=== PATIENT | female | born 1980 | race Caucasian/White ===

== ENCOUNTER 2017-01-18 17:58 | Emergency (ER) | payer OTHER ==
[~2017-01-18] VITALS: Ht 165.1 cm; Wt 204.0 kg
[~2017-01-18 17:58] MED LIST: AMOXICILLIN500 M2 PO; AMOXICILLIN500 MG PO; BACTRIM DS1 TAB PO; CEPHALEXIN500 MG OR; DARVOCET N-100100 - OR; FERROUS SULF325 M2 PO; LORTAB 5 OR; MACRODANTIN100 MG PO; MOTRIN800 MG/TAB PO; MULTI VIT PO; NAPROSYN500 MG OR; NAPROSYN500 MG PO; OBTREX DHA PO; OXYCO/APAP1 TA5 PO; PRENATA4 OR; ROBITUSSIN AC10 ML PO; ULTRAM50 M1 PO; VANCOMYCIN HCL1.5GM IV; WAL-FEX D 1212 HOUR PO; [UNRECOGNIZED DRUG - OTHER] PO
[2017-01-18] MEDS ORDERED: AMOXICILLIN500 MG PO (18:32)
[2017-01-18] MEDS ORDERED: ULTRAM50 M1 PO (18:32)
[2017-01-18 18:40] VITALS: BP 159/74
== END 2017-01-18 18:40 | disposition home or self-care (01) | DRG 563 ==
LOC: ED 17:58
DX: S93.402A Sprain of unspecified ligament of left ankle, initial encounter (principal); S90.812A Abrasion, left foot, initial encounter; W10.9XXA Fall (on) (from) unspecified stairs and steps, initial encounter; Y92.009 Unspecified place in unspecified non-institutional (private) residence as the place of occurrence of the external cause

== ENCOUNTER 2017-07-16 14:24 | Emergency (ER) | payer OTHER ==
[~2017-07-16] VITALS: Ht 165.1 cm; Wt 192.8 kg
[2017-07-16] MEDS ORDERED: AMOXICILLIN500 M2 PO (16:19)
[2017-07-16 16:54] VITALS: BP 150/87
== END 2017-07-16 16:50 | disposition home or self-care (01) | DRG 153 ==
LOC: ED 14:24
DX: J02.0 Streptococcal pharyngitis (principal); F17.210 Nicotine dependence, cigarettes, uncomplicated; H92.02 Otalgia, left ear; J02.9 Acute pharyngitis, unspecified; R11.2 Nausea with vomiting, unspecified; R05 Cough; R03.0 Elevated blood-pressure reading, without diagnosis of hypertension

== ENCOUNTER 2017-12-17 08:42 | Emergency (ER) | payer OTHER ==
[~2017-12-17] VITALS: Ht 165.1 cm; Wt 184.2 kg
[2017-12-17] MEDS ORDERED: TORADOL PO (09:58)
[2017-12-17 10:26] VITALS: BP 158/106
== END 2017-12-17 10:40 | disposition home or self-care (01) ==
LOC: ED 08:42
DX: S83.91XA Sprain of unspecified site of right knee, initial encounter (principal); X50.1XXA Overexertion from prolonged static or awkward postures, initial encounter; Y93.01 Activity, walking, marching and hiking; Y92.009 Unspecified place in unspecified non-institutional (private) residence as the place of occurrence of the external cause

== ENCOUNTER 2018-07-13 17:15 | Emergency (ER) | payer OTHER ==
[~2018-07-13] VITALS: Ht 165.1 cm; Wt 186.0 kg
[~2018-07-13 17:15] MED LIST changes: +TORADOL PO
[2018-07-13 17:45] LABS: HEMATOCRIT 41.8 % (37.0-47.0); HEMOGLOBIN 13.1 g/dl (12.0-16.0); IMMATURE GRANULOCYTES 0.6 % (0.0-5.0); MEAN CORPUSCULAR HGB 25.4 pG CALC (26.0-32.0); MEAN CORPUSCULAR HGB CONC 31.3 g/L CALC (32.0-36.0); NEUT# 7.17 thou/uL (2.00-7.15); RED BLOOD COUNT 5.16 mill/uL (4.20-5.60); RED CELL DISTRI WIDTH 16.7 % (11.5-15.5)
[2018-07-13 17:55] LABS: ALKALINE PHOSPHATASE 96 u/l (38-126); AMYLASE 51 u/l (30-110); ANION GAP 12 (6-22 (CALC)); BILIRUBIN, TOTAL 0.4 mg/dL (0.0-1.4); BUN 15 mg/dL (7-17); BUN/CREATININE RATIO 15 (12-20 (CALC)); CARBON DIOXIDE 27 mmol/l (22-30); CHLORIDE 107 mmol/l (95-108); GFR > 60 ML/MIN (>=60 (CALC)); GFR FOR AFR.AMER. > 60 ML/MIN (>=60 (CALC)); SGOT/AST 15 u/l (14-36); SODIUM 141 mmol/l (137-146)
[2018-07-13 18:07] LABS: MYOGLOBIN 41 ng/mL (0 - 62)
[2018-07-13 18:39] LABS: URINE BILIRUBIN - DIPSTICK NEGATIVE (NEGATIVE); URINE BLOOD DIPSTICK TRACE-INTACT (NEGATIVE); URINE COLOR YELLOW; URINE GLUCOSE - DIPSTICK NEGATIVE (NEGATIVE); URINE KETONE NEGATIVE (NEGATIVE); URINE LEUK ESTERASE NEGATIVE (NEGATIVE); URINE NITRITE - DIPSTICK NEGATIVE (Negative); URINE PROTEIN - DIPSTICK NEGATIVE (NEG-TRACE); URINE SPECIFIC GRAVITY 1.025
[2018-07-13 18:43] LABS: BARBITURATES NEGATIVE (NEGATIVE); COCAINE NEGATIVE (NEGATIVE); METHADONE NEGATIVE (NEGATIVE); OXCYCODONE NEGATIVE (NEGATIVE); TETRAHYDROCANNABIONOL NEGATIVE (NEGATIVE); TRICYLIC ANTIDEPRESSANTS NEGATIVE (NEGATIVE)
[2018-07-13 21:00] VITALS: BP 153/72
== END 2018-07-13 21:21 | disposition home or self-care (01) ==
LOC: ED 17:15
PROVIDERS: Emergency Medicine
DX: R07.89 Other chest pain (principal); R94.31 Abnormal electrocardiogram [ECG] [EKG]; R50.9 Fever, unspecified

== ENCOUNTER 2018-08-10 19:48 | Emergency (ER) | payer OTHER ==
[~2018-08-10] VITALS: Ht 157.5 cm; Wt 184.1 kg
[2018-08-10 21:17] VITALS: BP 181/87
[2018-08-10] MEDS ORDERED: ORPHENADRINE100 MG PO (21:17)
[2018-08-10] MEDS ORDERED: IBUPROFEN600 MG PO (21:17)
== END 2018-08-10 21:26 | disposition home or self-care (01) ==
LOC: ED 19:48
DX: R07.89 Other chest pain (principal); F17.210 Nicotine dependence, cigarettes, uncomplicated; R07.81 Pleurodynia

== ENCOUNTER 2018-09-11 19:33 | Emergency (ER) | payer OTHER ==
[~2018-09-11] VITALS: Ht 157.5 cm; Wt 182.4 kg
[~2018-09-11 19:33] MED LIST changes: +IBUPROFEN600 MG PO; +ORPHENADRINE100 MG PO
[2018-09-11] MEDS ORDERED: ZOFRAN4 MG/TAB PO (20:37)
[2018-09-11] MEDS ORDERED: AMOXICILLIN875 MG PO (20:37)
[2018-09-11 21:00] VITALS: BP 124/67
== END 2018-09-11 21:00 | disposition home or self-care (01) ==
LOC: ED 19:33
DX: J02.0 Streptococcal pharyngitis (principal); H66.92 Otitis media, unspecified, left ear; F17.200 Nicotine dependence, unspecified, uncomplicated; R50.9 Fever, unspecified

== ENCOUNTER 2019-01-13 16:27 | Emergency (ER) | payer MEDICAID ==
[~2019-01-13] VITALS: Ht 157.5 cm; Wt 200.0 kg
[~2019-01-13 16:27] MED LIST changes: +AMOXICILLIN875 MG PO; +ZOFRAN4 MG/TAB PO
[2019-01-13 17:34] LABS: HEMATOCRIT 45.1 % (37.0-47.0); HEMOGLOBIN 13.9 g/dl (12.0-16.0); IMMATURE GRANULOCYTES 0.5 % (0.0-5.0); MEAN CELL VOLUME 83.1 fL CALC (80.0-100.0); MEAN CORPUSCULAR HGB 25.6 pG CALC (26.0-32.0); MEAN CORPUSCULAR HGB CONC 30.8 g/L CALC (32.0-36.0); NEUT# 13.69 thou/uL (2.00-7.15); RED BLOOD COUNT 5.43 mill/uL (4.20-5.60); RED CELL DISTRI WIDTH 16.8 % (11.5-15.5)
[2019-01-13 17:54] LABS: ALBUMIN 3.9 g/dL (3.2-5.0); ALKALINE PHOSPHATASE 75 u/l (38-126); AMYLASE 39 u/l (30-110); ANION GAP 16 (6-22 (CALC)); BILIRUBIN, TOTAL 0.5 mg/dL (0.0-1.4); BUN 15 mg/dL (7-17); BUN/CREATININE RATIO 14 (12-20 (CALC)); CARBON DIOXIDE 23 mmol/l (22-30); CHLORIDE 102 mmol/l (95-108); GFR > 60 ML/MIN (>=60 (CALC)); GFR FOR AFR.AMER. > 60 ML/MIN (>=60 (CALC)); LIPASE 26 u/l (23-300); POTASSIUM 4.2 mmol/l (3.5-5.1); SGOT/AST 23 u/l (14-36); SODIUM 137 mmol/l (137-146); TOTAL PROTEIN 7.4 g/dL (6.3-8.2)
[2019-01-13] MEDS ORDERED: CLEOCIN300 MG PO (19:38)
[2019-01-13] MEDS ORDERED: ONDANSETRON4 MG PO (19:38)
[2019-01-13 19:52] VITALS: BP 149/65
== END 2019-01-13 20:00 | disposition home or self-care (01) ==
LOC: ED 16:27
PROVIDERS: Emergency Medicine
DX: J02.0 Streptococcal pharyngitis (principal); R11.2 Nausea with vomiting, unspecified; F17.210 Nicotine dependence, cigarettes, uncomplicated

== ENCOUNTER 2019-03-14 | Emergency (ER) | payer MEDICAID ==
[~2019-03-14] MED LIST changes: +CLEOCIN300 MG PO; +ONDANSETRON4 MG PO
[2019-03-14] MEDS ORDERED: CEPHALEXIN500 M1 PO (08:58)
== END 2019-03-14 09:21 | disposition home or self-care (01) ==
DX: F17.200 Nicotine dependence, unspecified, uncomplicated (principal); N61.0 Mastitis without abscess

== ENCOUNTER 2019-06-07 | Emergency (ER) | payer MEDICAID ==
[~2019-06-07] MED LIST changes: +CEPHALEXIN500 M1 PO
[2019-06-07] MEDS ORDERED: FLEXERIL PO (17:25)
== END 2019-06-07 17:43 | disposition home or self-care (01) ==
DX: S20.211A Contusion of right front wall of thorax, initial encounter (principal); S40.021A Contusion of right upper arm, initial encounter; S00.83XA Contusion of other part of head, initial encounter; S80.12XA Contusion of left lower leg, initial encounter; F17.210 Nicotine dependence, cigarettes, uncomplicated; W06.XXXA Fall from bed, initial encounter; Y93.89 Activity, other specified; Y92.003 Bedroom of unspecified non-institutional (private) residence as the place of occurrence of the external cause

== ENCOUNTER 2019-07-01 21:20 | Emergency (ER) | payer MEDICAID ==
[~2019-07-01 21:20] MED LIST changes: +FLEXERIL PO
[2019-07-01 22:30] LABS: ALBUMIN 3.7 g/dL (3.2-5.0); ALKALINE PHOSPHATASE 88 u/l (38-126); ANION GAP 10 (6-22 (CALC)); BILIRUBIN, TOTAL 0.3 mg/dL (0.0-1.4); BUN 18 mg/dL (7-17); BUN/CREATININE RATIO 16 (12-20 (CALC)); CHLORIDE 103 mmol/l (95-108); CREATININE 1.1 mg/dL (0.5-1.0); GFR 56 ML/MIN (>=60 (CALC)); GFR FOR AFR.AMER. > 60 ML/MIN (>=60 (CALC)); POTASSIUM 3.8 mmol/l (3.5-5.1); SGOT/AST 17 u/l (14-36); SODIUM 137 mmol/l (137-146)
[2019-07-01 22:31] LABS: HEMATOCRIT 39.7 % (37.0-47.0); IMMATURE GRANULOCYTES 0.5 % (0.0-5.0); MEAN CORPUSCULAR HGB 24.5 pG CALC (26.0-32.0); MEAN CORPUSCULAR HGB CONC 30.2 g/dL CAL (32.0-36.0); NEUT# 7.87 thou/uL (2.00-7.15); RED BLOOD COUNT 4.9 mill/uL (4.20-5.60); RED CELL DISTRI WIDTH 17.3 % (11.5-15.5)
[2019-07-01 22:33] LABS: CARBON DIOXIDE 28 mmol/l (22-30)
[2019-07-01 23:00] LABS: URINE BILIRUBIN - DIPSTICK NEGATIVE (NEGATIVE); URINE BLOOD DIPSTICK LARGE (NEGATIVE); URINE COLOR YELLOW; URINE GLUCOSE - DIPSTICK NEGATIVE (NEGATIVE); URINE KETONE NEGATIVE (NEGATIVE); URINE LEUK ESTERASE NEGATIVE (NEGATIVE); URINE NITRITE - DIPSTICK NEGATIVE (Negative); URINE PROTEIN - DIPSTICK NEGATIVE (NEG-TRACE); URINE UROBILINOGEN - DIPSTICK 0.2 E.U./dL (0.2)
[2019-07-01 23:01] LABS: URINE RBC TNTC RBC/hpf (0-5); URINE SQUAMOUS EPITHELIAL CELL FEW EPI/hpf (0-FEW)
[2019-07-01] MEDS ORDERED: PROVERA10 MG PO (23:09)
[2019-07-01] MEDS ORDERED: NAPROXEN500 MG PO (23:09)
[2019-07-01 23:25] VITALS: BP 160/80
== END 2019-07-01 23:25 | disposition home or self-care (01) ==
LOC: ED 21:20
PROVIDERS: Family Medicine
DX: N93.8 Other specified abnormal uterine and vaginal bleeding (principal); E66.01 Morbid (severe) obesity due to excess calories; F17.210 Nicotine dependence, cigarettes, uncomplicated

== ENCOUNTER 2019-08-11 20:13 | Emergency (ER) | payer MEDICAID ==
[~2019-08-11] VITALS: Ht 157.5 cm; Wt 190.0 kg
[~2019-08-11 20:13] MED LIST changes: +NAPROXEN500 MG PO; +PROVERA10 MG PO
[2019-08-11] MEDS ORDERED: MOTRIN800 MG PO (20:37)
[2019-08-11] MEDS ORDERED: CLINDAMYCIN300 M1 PO (20:37)
[2019-08-11 21:10] VITALS: BP 148/82
== END 2019-08-11 21:11 | disposition home or self-care (01) ==
LOC: ED 20:13
DX: K04.7 Periapical abscess without sinus (principal); E66.9 Obesity, unspecified; F17.200 Nicotine dependence, unspecified, uncomplicated

== ENCOUNTER 2020-07-26 13:12 | Emergency (ER) | payer OTHER ==
[~2020-07-26] VITALS: Ht 157.5 cm; Wt 193.0 kg
[~2020-07-26 13:12] MED LIST changes: +CLINDAMYCIN300 M1 PO; +MOTRIN800 MG PO
[2020-07-26 14:15] LABS: BASO% 0 % (0-3); EOS% 2 % (0-8); HEMATOCRIT 41.3 % (37.0-47.0); HEMOGLOBIN 12.6 g/dl (12.0-16.0); IMMATURE GRANULOCYTES 0.3 % (0.0-5.0); LYMPH% 21 % (15-41); MEAN CORPUSCULAR HGB 24.1 pG CALC (26.0-32.0); MEAN CORPUSCULAR HGB CONC 30.5 g/dL CAL (32.0-36.0); MONO% 6 % (2-13); NEUT# 6.13 thou/uL (2.00-7.15); NEUT% 71 % (42-76); PLATELET COUNT 229 thou/uL (130-400); RED BLOOD COUNT 5.23 mill/uL (4.20-5.60); RED CELL DISTRI WIDTH 18.1 % (11.5-15.5)
[2020-07-26 14:30] LABS: ALBUMIN 3.7 g/dL (3.2-5.0); ALKALINE PHOSPHATASE 69 u/l (38-126); ANION GAP 9 (6-22 (CALC)); BUN 11 mg/dL (7-17); BUN/CREATININE RATIO 11 (12-20 (CALC)); CARBON DIOXIDE 28 mmol/l (22-30); CHLORIDE 103 mmol/l (95-108); GFR > 60 ML/MIN (>=60 (CALC)); GFR FOR AFR.AMER. > 60 ML/MIN (>=60 (CALC)); POTASSIUM 3.8 mmol/l (3.5-5.1); SGOT/AST 19 u/l (14-36); SODIUM 136 mmol/l (137-146); TOTAL PROTEIN 7.1 g/dL (6.3-8.2)
[2020-07-26 14:31] LABS: BILIRUBIN, TOTAL 0.5 mg/dL (0.0-1.4)
[2020-07-26 17:39] VITALS: BP 140/74
== END 2020-07-26 17:47 | disposition home or self-care (01) ==
LOC: ED 13:12
PROVIDERS: Family Medicine
DX: N93.9 Abnormal uterine and vaginal bleeding, unspecified (principal); N94.89 Other specified conditions associated with female genital organs and menstrual cycle; E66.9 Obesity, unspecified; F17.210 Nicotine dependence, cigarettes, uncomplicated; Z68.45 Body mass index [BMI] 70 or greater, adult

== ENCOUNTER 2021-03-28 13:49 | Emergency (ER) | payer OTHER ==
[~2021-03-28] VITALS: Ht 157.5 cm; Wt 190.9 kg
[2021-03-28 14:36] LABS: HEMATOCRIT 39.3 % (37.0-47.0); HEMOGLOBIN 11.4 g/dl (12.0-16.0); IMMATURE GRANULOCYTES 0.3 % (0.0-5.0); MEAN CELL VOLUME 77.8 fL CALC (80.0-100.0); MEAN CORPUSCULAR HGB 22.6 pG CALC (26.0-32.0); NEUT# 7.01 thou/uL (2.00-7.15); RED BLOOD COUNT 5.05 mill/uL (4.20-5.60); RED CELL DISTRI WIDTH 18.7 % (11.5-15.5)
[2021-03-28 14:55] LABS: ALBUMIN 3.6 g/dL (3.2-5.0); ALKALINE PHOSPHATASE 82 u/l (38-126); ANION GAP 11 (6-22 (CALC)); BILIRUBIN, TOTAL 0.3 mg/dL (0.0-1.4); BUN 11 mg/dL (7-17); BUN/CREATININE RATIO 9 (12-20 (CALC)); CARBON DIOXIDE 27 mmol/l (22-30); CHLORIDE 103 mmol/l (95-108); CREATININE 1.1 mg/dL (0.5-1.0); GFR 55 ML/MIN (>=60 (CALC)); GFR FOR AFR.AMER. > 60 ML/MIN (>=60 (CALC)); POTASSIUM 3.9 mmol/l (3.5-5.1); SGOT/AST 17 u/l (14-36); SODIUM 137 mmol/l (137-146); TOTAL PROTEIN 6.8 g/dL (6.3-8.2)
[2021-03-28] MEDS ORDERED: ZPAK PO (17:32)
[2021-03-28 17:53] VITALS: BP 148/78
== END 2021-03-28 18:12 | disposition home or self-care (01) ==
LOC: ED 13:49
PROVIDERS: Family Medicine
DX: J06.9 Acute upper respiratory infection, unspecified (principal); E66.9 Obesity, unspecified; F17.200 Nicotine dependence, unspecified, uncomplicated; Z20.822 Contact with and (suspected) exposure to COVID-19

== ENCOUNTER 2021-06-18 20:41 | Emergency (ER) | payer OTHER ==
[2021-06-18] VITALS (12 sets, daily range): BP systolic 121–173; BP diastolic 58–94
[~2021-06-18] VITALS: Ht 157.5 cm; Wt 186.0 kg
[~2021-06-18 20:41] MED LIST changes: +ZPAK PO
[2021-06-18 21:22] LABS: HEMATOCRIT 37.2 % (37.0-47.0); HEMOGLOBIN 10.6 g/dl (12.0-16.0); IMMATURE GRANULOCYTES 0.6 % (0.0-5.0); MEAN CELL VOLUME 72.9 fL CALC (80.0-100.0); MEAN CORPUSCULAR HGB 20.8 pG CALC (26.0-32.0); MEAN CORPUSCULAR HGB CONC 28.5 g/dL CAL (32.0-36.0); NEUT# 8.02 thou/uL (2.00-7.15); RED BLOOD COUNT 5.1 mill/uL (4.20-5.60); RED CELL DISTRI WIDTH 19.3 % (11.5-15.5)
[2021-06-18 21:32] LABS: ALBUMIN 3.7 g/dL (3.2-5.0); ALKALINE PHOSPHATASE 59 u/l (38-126); ANION GAP 11 (6-22 (CALC)); BILIRUBIN, TOTAL 0.4 mg/dL (0.0-1.4); BUN 9 mg/dL (7-17); BUN/CREATININE RATIO 8 (12-20 (CALC)); CARBON DIOXIDE 25 mmol/l (22-30); CHLORIDE 107 mmol/l (95-108); CREATININE 1.1 mg/dL (0.5-1.0); GFR 55 ML/MIN (>=60 (CALC)); GFR FOR AFR.AMER. > 60 ML/MIN (>=60 (CALC)); POTASSIUM 3.5 mmol/l (3.5-5.1); SGOT/AST 17 u/l (14-36); SODIUM 139 mmol/l (137-146); TOTAL PROTEIN 6.9 g/dL (6.3-8.2)
[2021-06-18 21:39] LABS: D-DIMER 2.54 mg/L (0.19-0.60)
[2021-06-18 21:44] LABS: ACT PARTIAL THROMBO TIME 26.2 SECONDS (20.0-32.5); MYOGLOBIN 43 ng/mL (0 - 62); PROTHROMBIN TIME 10.6 SECONDS (9.0-12.5)
[2021-06-18] MEDS ORDERED: ELIQUIS5 MG PO (23:32)
== END 2021-06-19 00:08 | disposition home or self-care (01) ==
LOC: ED 20:41
PROVIDERS: Family Medicine
DX: I26.99 Other pulmonary embolism without acute cor pulmonale (principal); E66.9 Obesity, unspecified; F17.200 Nicotine dependence, unspecified, uncomplicated
CPT/HCPCS: Q9967

== ENCOUNTER 2022-01-18 16:16 | Emergency (ER) | payer OTHER ==
[~2022-01-18] VITALS: Ht 157.5 cm; Wt 202.0 kg
[2022-01-18] VITALS (8 sets, daily range): BP systolic 108–161; BP diastolic 56–86
[~2022-01-18 16:16] MED LIST changes: +ELIQUIS5 MG PO
[2022-01-18] MEDS ORDERED: NAPROXEN500 MG PO (18:24)
== END 2022-01-18 19:40 | disposition home or self-care (01) ==
LOC: ED 16:16
DX: M25.562 Pain in left knee (principal); M17.12 Unilateral primary osteoarthritis, left knee; E66.01 Morbid (severe) obesity due to excess calories

== ENCOUNTER 2022-03-29 17:08 | Emergency (ER) | payer OTHER ==
[~2022-03-29] VITALS: Ht 157.5 cm; Wt 199.8 kg
[2022-03-29] MEDS ORDERED: MEGESTROL AC20 MG PO (17:52)
[2022-03-29] MEDS ORDERED: HYDROXYZ HCL25 MG PO (17:52)
[2022-03-29] MEDS ORDERED: LOSARTAN POTASS50 MG PO (17:53)
[2022-03-29 20:02] VITALS: BP 121/71
[2022-03-29] MEDS ORDERED: NAPROXEN500 MG PO (20:04)
== END 2022-03-29 20:12 | disposition home or self-care (01) ==
LOC: ED 17:08
DX: M17.12 Unilateral primary osteoarthritis, left knee (principal); E66.01 Morbid (severe) obesity due to excess calories

== ENCOUNTER 2023-03-06 16:33 | Emergency (ER) | payer SELFPAY ==
[~2023-03-06] VITALS: Ht 165.1 cm; Wt 194.0 kg
[2023-03-06] VITALS (10 sets, daily range): BP systolic 118–186; BP diastolic 65–162
[~2023-03-06 16:33] MED LIST changes: +ASPIRINCHW 81MG PO; +HYDROXYZ HCL25 MG PO; +LOSARTAN POTASS50 MG PO; +MEGESTROL AC20 MG PO; +TRAMADOL HYDROC50 M1 PO; +XARELTO10 MG PO
[2023-03-06 17:02] LABS: BASO% 0.4 % (0-3); EOS% 4.9 % (0-8); HEMATOCRIT 45.3 % (37.0-47.0); IMMATURE GRANULOCYTES 0.6 % (0.0-5.0); LYMPH% 28.8 % (15-41); MEAN CELL VOLUME 84.5 fL CALC (80.0-100.0); MEAN CORPUSCULAR HGB 26.1 pG CALC (26.0-32.0); MEAN CORPUSCULAR HGB CONC 30.9 g/dL CAL (32.0-36.0); MONO% 10.9 % (2-13); NEUT# 2.79 thou/uL (2.00-7.15); NEUT% 54.4 % (42-76); RED BLOOD COUNT 5.36 mill/uL (4.20-5.60)
[2023-03-06 17:24] LABS: ALBUMIN 3.9 g/dL (3.2-5.0); ALKALINE PHOSPHATASE 61 u/l (38-126); ANION GAP 13 (6-22 (CALC)); BUN 15 mg/dL (7-17); BUN/CREATININE RATIO 15 (12-20 (CALC)); CARBON DIOXIDE 25 mmol/l (22-30); CHLORIDE 104 mmol/l (95-108); GFR FOR AFR.AMER. > 60 ML/MIN (>=60 (CALC)); GFR OTHER RACES > 60 ML/MIN (>=60 (CALC)); POTASSIUM 3.4 mmol/l (3.5-5.1); SODIUM 139 mmol/l (137-146); TOTAL PROTEIN 6.6 g/dL (6.3-8.2)
[2023-03-06 17:25] LABS: BILIRUBIN, TOTAL 0.8 mg/dL (0.02-1.3); SGOT/AST 42 u/l (14-36)
[2023-03-06] MEDS ORDERED: AMOX/K CLAV875 M1 PO (18:34)
== END 2023-03-06 18:56 | disposition home or self-care (01) | DRG 192 ==
LOC: ED 16:33
PROVIDERS: Emergency Medicine
DX: J41.8 Mixed simple and mucopurulent chronic bronchitis (principal); E66.01 Morbid (severe) obesity due to excess calories; Z86.711 Personal history of pulmonary embolism; T45.516A Underdosing of anticoagulants, initial encounter; Z91.120 Patient's intentional underdosing of medication regimen due to financial hardship; Z79.82 Long term (current) use of aspirin; Z20.822 Contact with and (suspected) exposure to COVID-19

== ENCOUNTER 2023-08-13 20:54 | Emergency (ER) | payer OTHER ==
[~2023-08-13] VITALS: Ht 165.1 cm; Wt 200.0 kg
[~2023-08-13 20:54] MED LIST changes: +AMOX/K CLAV875 M1 PO
[2023-08-13 21:02] VITALS: BP 153/76
[2023-08-13] MEDS ORDERED: ASPIRIN 81 MG/TAB PO ONE (21:05)
[2023-08-13] MEDS ORDERED: KETOROLAC TROMETHAMINE 30 MG/ML SDV IV ONE (21:05)
[2023-08-13] MEDS ORDERED: ACETAMINOPHEN 500 MG TAB PO ONE (21:05)
[2023-08-13] MEDS ORDERED: KETOROLAC TROMETHAMINE 30 MG/ML SDV IM ONE (21:30)
[2023-08-13 21:35] LABS: BASO% 0.2 % (0-3); EOS% 1.5 % (0-8); HEMATOCRIT 45.5 % (37.0-47.0); IMMATURE GRANULOCYTES 0.2 % (0.0-5.0); LYMPH% 19.5 % (15-41); MEAN CELL VOLUME 85.4 fL CALC (80.0-100.0); MEAN CORPUSCULAR HGB 26.3 pG CALC (26.0-32.0); MEAN CORPUSCULAR HGB CONC 30.8 g/dL CAL (32.0-36.0); MONO% 5.4 % (2-13); NEUT# 8.06 thou/uL (2.00-7.15); NEUT% 73.2 % (42-76); RED BLOOD COUNT 5.33 mill/uL (4.20-5.60); RED CELL DISTRI WIDTH 16.2 % (11.5-15.5)
[2023-08-13 21:46] LABS: ALBUMIN 3.9 g/dL (3.2-5.0); ALKALINE PHOSPHATASE 58 u/l (38-126); ANION GAP 8 (6-22 (CALC)); BILIRUBIN, TOTAL 0.7 mg/dL (0.02-1.3); BUN 12 mg/dL (7-17); BUN/CREATININE RATIO 8 (12-20 (CALC)); CARBON DIOXIDE 28 mmol/l (22-30); CHLORIDE 108 mmol/l (95-108); CREATININE 1.5 mg/dL (0.5-1.0); ESTIMATED GFR 44 ML/MIN (>=90 (CALC)); MAGNESIUM 2.3 mg/dL (1.6-2.3); POTASSIUM 3.4 mmol/l (3.5-5.1); SGOT/AST 23 u/l (14-36); SODIUM 141 mmol/l (137-146); TOTAL PROTEIN 7.5 g/dL (6.3-8.2)
[2023-08-13 21:53] LABS: ACT PARTIAL THROMBO TIME 28.8 SECONDS (20.0-32.5); INTERNATIONAL NORMALIZED RATIO 1.2 RATIO (0.7-1.3)
[2023-08-13 22:00] LABS: PROTHROMBIN TIME 10.9 SECONDS (9.0-12.5)
[2023-08-13] MEDS ORDERED: VOLTAREN - GENE75 MG PO (22:54)
[2023-08-13] MEDS ORDERED: TRAMADOL HCL50 MG PO (22:55)
[2023-08-13] MEDS ORDERED: Acetaminophen 300 MG/Codeine 30 MG/COMBO PO ONE (22:55)
[2023-08-13 23:14] VITALS: BP 153/76
== END 2023-08-13 23:14 | disposition home or self-care (01) | DRG 313 ==
LOC: ED 20:54
PROVIDERS: Family Medicine
DX: R07.89 Other chest pain (principal); E66.9 Obesity, unspecified; Z86.711 Personal history of pulmonary embolism

== ENCOUNTER 2023-09-12 13:16 | Emergency (ER) | payer SELFPAY ==
[~2023-09-12] VITALS: Ht 165.1 cm; Wt 197.4 kg
[2023-09-12] VITALS (8 sets, daily range): BP systolic 128–182; BP diastolic 61–84
[~2023-09-12 13:16] MED LIST changes: +TRAMADOL HCL50 MG PO; +VOLTAREN - GENE75 MG PO
[2023-09-12] MEDS ORDERED: KETOROLAC TROMETHAMINE 30 MG/ML SDV IM ONE (13:25)
[2023-09-12] MEDS ORDERED: HYDROmorphone HCL 2 MG/AMP IM ONE (13:25)
[2023-09-12 13:46] LABS: BASO% 0.2 % (0-3); EOS% 1.2 % (0-8); HEMATOCRIT 48.3 % (37.0-47.0); HEMOGLOBIN 14.4 g/dl (12.0-16.0); IMMATURE GRANULOCYTES 0.3 % (0.0-5.0); LYMPH% 19.2 % (15-41); MEAN CELL VOLUME 86.4 fL CALC (80.0-100.0); MEAN CORPUSCULAR HGB 25.8 pG CALC (26.0-32.0); MEAN CORPUSCULAR HGB CONC 29.8 g/dL CAL (32.0-36.0); MONO% 6.2 % (2-13); NEUT# 8.4 thou/uL (2.00-7.15); NEUT% 72.9 % (42-76); RED BLOOD COUNT 5.59 mill/uL (4.20-5.60); RED CELL DISTRI WIDTH 16.4 % (11.5-15.5)
[2023-09-12 13:59] LABS: ALBUMIN 4.2 g/dL (3.2-5.0); BILIRUBIN, TOTAL 0.7 mg/dL (0.02-1.3); CREATININE 1.3 mg/dL (0.5-1.0); TOTAL PROTEIN 7.6 g/dL (6.3-8.2)
[2023-09-12 14:01] LABS: POTASSIUM 4.3 mmol/l (3.5-5.1)
[2023-09-12] MEDS ORDERED: IBUPROFEN600 MG PO (15:04)
[2023-09-12] MEDS ORDERED: PREDNISONE50 MG PO (15:04)
[2023-09-12] MEDS ORDERED: CYCLOBENZAPRINE10 MG PO (15:04)
[2023-09-12] MEDS ORDERED: OMNICEF300 MG PO (15:06)
== END 2023-09-12 15:30 | disposition home or self-care (01) | DRG 690 ==
LOC: ED 13:16
PROVIDERS: Family Medicine
DX: N39.0 Urinary tract infection, site not specified (principal); E66.01 Morbid (severe) obesity due to excess calories; Z86.711 Personal history of pulmonary embolism